=== PATIENT | male | born 1975 | race Caucasian/White ===

== ENCOUNTER 2019-01-14 19:27 | Emergency (ER) | payer OTHER ==
[2019-01-14 19:50] VITALS: BP 134/90; PULSE 102; TEMP 99.2; BMI 25.7
--- NOTE | 2019-01-14 20:15 | PDOC ---
History of Present Illness - General History Source: Patient Exam Limitations: No Limitations - History of Present Illness Initial Comments: 01/14/19 20:58 The patient is a year old 43 male, with no significant PMH, who presents to the emergency department with a fever that began 5 days ago. The patient states symptoms began with mild nasal congestion on 01/09 while he was in [place]. The patient mentions he began to endorse associated symptoms of fever, cough, chills, sweats, chest tightness and back pain throughout the week and came to the ER today for further evaluation. The patient notes no relief with Mucinex and switched to Sudafed today. The patient denies headache and dizziness. Denies fever, chills, nausea, vomit, diarrhea and constipation. Denies dysuria, frequency, urgency and hematuria.Denies asthma Allergies: NKDA Past surgical history: Social history: Drinks occasionally but denies smoking and recreational drug use. PCP: Rohit Mast <Roz Zuñiga - Last Filed: 01/14/19 21:08> <Sammie Morris - Last Filed: 01/15/19 04:40> - General Chief Complaint: Respiratory Stated Complaint: COUGH Time Seen by Provider: 01/14/19 19:39 Past History <Roz Zuñiga - Last Filed: 01/14/19 21:08> - Past Medical History COPD: No HTN: Yes - Suicide/Smoking/Psychosocial Hx Smoking History: Never smoked Hx Alcohol Use: Yes (SOCIAL) Drug/Substance Use Hx: No <Sammie Morris - Last Filed: 01/15/19 04:40> - Past Medical History Allergies/Adverse Reactions: Allergies Allergy/AdvReac Type Severity Reaction Status Date / Time No Known Allergies Allergy Verified 01/14/19 19:36 Home Medications: Ambulatory Orders Azithromycin 250 mg PO DAILY #4 tablet 01/14/19 Guaifenesin [Mucinex] 600 mg PO BID PRN 01/14/19 Losartan Potassium [Cozaar] 25 mg PO HS 01/14/19 Review of Systems - Review of Systems Able to Perform ROS?: Yes Comments:: 01/14/19 20:58 GENERAL/CONSTITUTIONAL: +Fever +chills HEAD, EYES, EARS, NOSE AND THROAT: No change in vision. No ear pain or discharge. No sore throat. CARDIOVASCULAR:+chest pain. RESPIRATORY: +cough +wheezing cough. No hemoptysis. GASTROINTESTINAL: No nausea, vomiting, diarrhea or constipation. GENITOURINARY: No dysuria, frequency, or change in urination. MUSCULOSKELETAL:+Back pain No joint or muscle swelling or pain. No neck. SKIN: No rash NEUROLOGIC: No headache, vertigo, loss of consciousness, or change in strength/ sensation. ENDOCRINE: No increased thirst. No abnormal weight change. HEMATOLOGIC/LYMPHATIC: No anemia, easy bleeding, or history of blood clots. ALLERGIC/IMMUNOLOGIC: No hives or skin allergy. <Roz Zuñiga - Last Filed: 01/14/19 21:08> *Physical Exam - Vital Signs Last Vital Signs Temp Pulse Resp BP Pulse Ox 99.2 F 102 H 16 134/90 97 01/14/19 19:31 01/14/19 19:31 01/14/19 19:31 01/14/19 19:31 01/14/19 19:31 - Physical Exam Comments: 01/14/19 20:58 GENERAL: Awake, alert, and fully oriented, in no acute distress HEAD: No signs of trauma EYES: PERRLA, EOMI, sclera anicteric, conjunctiva clear ENT: Auricles normal inspection, hearing grossly normal, nares patent, oropharynx clear without exudates. Moist mucosa NECK: Normal ROM, supple, no lymphadenopathy, JVD, or masses LUNGS:+Scattered bilateral wheezing. HEART: Regular rate and rhythm, normal S1 and S2, no murmurs, rubs or gallops ABDOMEN: Soft, nontender, normoactive bowel sounds. No guarding, no rebound. No masses EXTREMITIES: Normal range of motion, no edema. No clubbing or cyanosis. No cords, erythema, or tenderness NEUROLOGICAL: Cranial nerves II through XII grossly intact. Normal speech. SKIN: Warm, Dry, normal turgor, no rashes or lesions noted. <Roz Zuñiga - Last Filed: 01/14/19 21:08> - Vital Signs Last Vital Signs Temp Pulse Resp BP Pulse Ox 99.2 F 102 H 16 134/90 97 01/14/19 19:31 01/14/19 19:31 01/14/19 19:31 01/14/19 19:31 01/14/19 19:31 <Sammie Morris - Last Filed: 01/15/19 04:40> Moderate Sedation - Procedure Monitoring Vital Signs: Procedure Monitoring Vital Signs Temperature 99.2 F 01/14/19 19:31 Pulse Rate 102 H 01/14/19 19:31 Respiratory Rate 16 01/14/19 19:31 Blood Pressure 134/90 01/14/19 19:31 O2 Sat by Pulse Oximetry (%) 97 01/14/19 19:31 <Roz Zuñiga - Last Filed: 01/14/19 21:08> - Procedure Monitoring Vital Signs: Procedure Monitoring Vital Signs Temperature 99.2 F 01/14/19 19:31 Pulse Rate 102 H 01/14/19 19:31 Respiratory Rate 16 01/14/19 19:31 Blood Pressure 134/90 01/14/19 19:31 O2 Sat by Pulse Oximetry (%) 97 01/14/19 19:31 <Sammie Morris - Last Filed: 01/15/19 04:40> ED Treatment Course - Medications Given in the ED: ED Medications Discontinued Medications Generic Name Dose Route Start Last Admin Trade Name Freq PRN Reason Stop Dose Admin Albuterol/Ipratropium 1 amp 01/14/19 20:26 01/14/19 20:29 Duoneb - NEB 01/14/19 20:27 1 amp ONCE ONE Administration <Roz Zuñiga - Last Filed: 01/14/19 21:08> Progress Note - Progress Note Progress Note: Documentation has been prepared under my direction and personally reviewed by me in its entirety. I attest that this documented accurately reflects all work, treatment, procedures and medical decision making performed by me. <Sammie Morris - Last Filed: 01/15/19 04:40> Medical Decision Making - Medical Decision Making As noted above, this 43-year-old man without significant past medical history presents with a several day history of non productive cough along with subjective fever. Illness began with nasal congestion/runny nose . Exam as noted. Patient has scattered expiratory wheezing on exam. No other abnormal breath sounds heard. Because of the wheezing on exam, patient given DuoNeb nebulizer treatment. Clinical presentation most consistent with acute bronchitis; although patient has no history of asthma, because of the prolonged course of cough azithromycin course will be started with first dose of 500 mg by mouth given here in the emergency room . The remainder of the 5 day course will be sent to his pharmacy (that is, 20/50 milligrams daily for 4 days). <Sammie Morris - Last Filed: 01/15/19 04:40> *DC/Admit/Observation/Transfer - Attestations Scribe Attestion: 01/14/19 20:59 Documentation prepared by Roz Zuñiga, acting as general medical practitioner for Sammie Morris MD. <Roz Zuñiga - Last Filed: 01/14/19 21:08> <Sammie Morris - Last Filed: 01/15/19 04:40> Diagnosis at time of Disposition: Bronchitis - Discharge Dispostion Disposition: HOME Condition at time of disposition: Stable - Prescriptions Prescriptions: Azithromycin 250 mg PO DAILY #4 tablet - Referrals Referrals: Rohit Mast MD [Primary Care Provider] - - Patient Instructions Additional Instructions: rest;drink plenty of fluids Azithromycin 250mg daily for the next 4 days return or see Dr Mast if you have persistent cough/fever return to ER if you have shortness of breath/wheezing/high fever - Post Discharge Activity
[2019-01-14] MEDS ORDERED: ALBUTEROL SO4 2.5/IPRATROPIUM 0.5 INH SOL 3 ML VIAL.NEB. NEB ONE ×2 (20:26→20:27)
[2019-01-14] MEDS ORDERED: AZITHROMYCIN 250 MG TABLET PO ONE (20:53)
[2019-01-14] MEDS ORDERED: AZITHROMYCIN 500 MG TABLET ONE (20:56)
== END 2019-01-14 21:09 | disposition home or self-care (01) ==
LOC: FER 19:27
PROC: 3E0F7GC Introduction of Other Therapeutic Substance into Respiratory Tract, Via Natural or Artificial Opening (ICD-10-PCS; principal; 2019-01-14)
DX: R05 Cough (principal); J40 Bronchitis, not specified as acute or chronic
CPT/HCPCS: 99282-25

== ENCOUNTER 2020-06-05 21:15 | Emergency (ER) | payer OTHER ==
[2020-06-05 21:22] VITALS: BP 135/99; PULSE 89; TEMP 98.1; BMI 24.4
[2020-06-05] MEDS ORDERED: diphenhydrAMINE HCL 25 MG CAPSULE (FP) PO ONE ×2 (21:33→21:38)
--- NOTE | 2020-06-05 21:50 | PDOC ---
Documentation entered by Daisy Nails SCRIBE, acting as scribe for Sammie Morris MD. Sammie Morris MD: This documentation has been prepared by the scribeJesu Ana, SCRIBE, under my direction and personally reviewed by me in its entirety. I confirm that the documentation accurately reflects all work, treatment, procedures, and medical decision making performed by me. History of Present Illness - General Chief Complaint: Bite Stated Complaint: "I got stung by a bee" Time Seen by Provider: 06/05/20 21:19 History Source: Patient Exam Limitations: No Limitations - History of Present Illness Initial Comments: 06/05/20 21:23 Patient is a 45 year old male with a significant past medical history high blood pressure who presents to the ED with an insect bite x5 hours upon arrival. Patient stated he was cutting grass when he felt something bite him "a sharp pain" in his right ankle and he ignored it until his ankle started swelling up and he was in "a lot of really bad pain". Patient said he has been bit by insects before and never "felt anything like this". No history of insect toxin allergy. Patient denies: self medicating for the pain, SOB, wheezing, swallowing issues, any other related symptoms, smoking, drug use. Allergies: NKDA PCP: Dr. Rohit Mast Social history: Social drinker Past History - Medical History Allergies/Adverse Reactions: Allergies Allergy/AdvReac Type Severity Reaction Status Date / Time No Known Allergies Allergy Verified 06/05/20 21:41 Home Medications: Ambulatory Orders NK [No Known Home Medication] 06/05/20 COPD: No HTN: No - Immunization History Immunization Up to Date: Yes - Psycho-Social/Smoking History Smoking History: Never smoked - Substance Abuse Hx (Audit-C & DAST Scrn) How often the patient has a drink containing alcohol: Monthly or less Score: In Men: 4 or > Positive; In Women: 3 or > Positive: 1 Screen Result (Pos requires Nsg. Audit-10AR): Negative In the last yr the pt used illegal drug/Rx for NonMed reason: No Score: Yes response is considered Positive: 0 Screen Result (Positive result requires Nsg. DAST-10): Negative Review of Systems - Review of Systems Able to Perform ROS?: Yes Comments:: 06/05/20 21:42 CONSTITUTIONAL: Absent: fever, chills, diaphoresis, generalized weakness, malaise, loss of appetite HEENT: Absent: rhinorrhea, nasal congestion, throat pain, throat swelling, difficulty swallowing, mouth swelling, ear pain, eye pain, visual Changes CARDIOVASCULAR: Absent: chest pain, syncope, palpitations, irregular heart rate, lightheadedness, peripheral edema RESPIRATORY: Absent: cough, shortness of breath, dyspnea with exertion, orthopnea, wheezing, stridor, hemoptysis GASTROINTESTINAL: Absent: abdominal pain, abdominal distension, nausea, vomiting, diarrhea, constipation, melena, hematochezia GENITOURINARY: Absent: dysuria, frequency, urgency, hesitancy, hematuria, flank pain, genital pain MUSCULOSKELETAL: +Pain and swelling in right ankle Absent: myalgia, arthralgia, SKIN: Absent: rash, itching, pallor HEMATOLOGIC/IMMUNOLOGIC: Absent: easy bleeding, easy bruising, lymphadenopathy, frequent infections ENDOCRINE: Absent: unexplained weight gain, unexplained weight loss, heat intolerance, cold intolerance NEUROLOGIC: Absent: headache, focal weakness or paresthesias, dizziness, unsteady gait, seizure, mental status changes, bladder or bowel incontinence PSYCHIATRIC: Absent: anxiety, depression, suicidal or homicidal ideation, hallucinations. *Physical Exam - Vital Signs Last Vital Signs Temp Pulse Resp BP Pulse Ox 98.1 F 89 18 135/99 100 06/05/20 21:16 06/05/20 21:16 06/05/20 21:16 06/05/20 21:16 06/05/20 21:16 - Physical Exam 06/05/20 21:44 Well developed, well nourished. Awake and alert. No acute distress. HEENT: Normocephalic, atraumatic. PERRLA, EOMI. No conjunctival pallor. Sclera are non- icteric. Moist mucous membranes. Oropharynx is clear. NECK: Supple. Full ROM. No JVD. Carotid pulses 2+ and symmetric, without bruits. No thyromegaly. No lymphadenopathy. CARDIOVASCULAR: Regular rate and rhythm. No murmurs, rubs, or gallops. Distal pulses are 2+ and symmetric. PULMONARY: No evidence of respiratory distress. Lungs clear to auscultation bilaterally. No wheezing, rales or rhonchi. ABDOMINAL: Soft. Non-tender. Non-distended. No rebound or guarding. No organomegaly. Normoactive bowel sounds. MUSCULOSKELETAL: Normal range of motion at all joints. No bony deformities. No CVA tenderness. EXTREMITIES: + 3cm diameter moderately tender, mildly erythematous and erythematous area anterior right ankle. No fluctuance No red streaking seen proximally. No cyanosis. No clubbing. No calf tenderness. No other abnormalities. SKIN: Warm and dry. Normal capillary refill. No rashes. No jaundice. NEUROLOGICAL: Alert, awake, appropriate. Cranial nerves 2-12 intact. No deficits to light touch and temperature in face, upper extremities and lower extremities. No motor deficits in the in face, upper extremities and lower extremities. Normoreflexic in the upper and lower extremities. Normal speech. Toes are down-going bilaterally. Gait is normal without ataxia. PSYCHIATRIC: Cooperative. Good eye contact. Appropriate mood and affect. 06/05/20 21:51 Medical Decision Making - Medical Decision Making As noted above, this otherwise healthy 45-year-old man presents with an insect bite/sting of the anterior aspect of the right ankle. The tender, erythematous, slightly edematous area is circumscribed and no lymphangitic streaking is present. There is no fluctuance or purulent discharge. Clinical presentation consistent with local reaction to insect toxin. Since this bite or sting was within the last 8 hours, this is too early for secondary infection. The patient will will elevate and ice the area as much as possible and will return if the area becomes more inflamed within the next 48 hours. Discharge - Discharge Information Problems reviewed: Yes Clinical Impression/Diagnosis: Insect sting Qualifiers: Encounter type: initial encounter Injury intent: accidental or unintentional Qualified Code(s): T63.481A - Toxic effect of venom of other arthropod, accidental (unintentional), initial encounter Condition: Stable Disposition: HOME - Follow up/Referral Referrals: Rohit Mast MD [Primary Care Provider] - - Patient Discharge Instructions Patient Printed Discharge Instructions: DI for Insect Bites and Stings Additional Instructions: Ice/elevation to area of insect sting/bite for the next 24 hours Benadryl at night/Claritin or Zyrtec during the day for the next 2 to 3 days Return to ER or see your doctor if area continues to be red/swollen/painful in 48 hours Return to ER immediately if you have any difficulty swallowing or breathing - Post Discharge Activity
== END 2020-06-05 21:48 | disposition home or self-care (01) ==
LOC: SUPCPDRO 21:15 → FER 21:15
DX: T63.481A Toxic effect of venom of other arthropod, accidental (unintentional), initial encounter (principal)
CPT/HCPCS: 99283-25

== ENCOUNTER 2020-06-07 15:36 | Emergency (ER) | payer OTHER ==
[2020-06-07 16:09] VITALS: BP 139/86; PULSE 71; TEMP 97.9; BMI 27.6
[2020-06-07] MEDS ORDERED: predniSONE 20 MG TABLET (UD) PO ONE (16:11)
--- NOTE | 2020-06-07 16:11 | PDOC ---
Documentation entered by Zee Dempsey SCRIBE, acting as scribe for Trinh Allen MD. Trinh Allen MD: This documentation has been prepared by the Ke bautista Xhesika, SCRIBE, under my direction and personally reviewed by me in its entirety. I confirm that the documentation accurately reflects all work, treatment, procedures, and medical decision making performed by me. History of Present Illness - General Chief Complaint: Redness To Affected Area Stated Complaint: right foot redness Time Seen by Provider: 06/07/20 15:42 History Source: Patient Exam Limitations: No Limitations - History of Present Illness Initial Comments: 06/07/20 15:45 The patient is a 45y/o M with no PMH who presents to the ED for R foot swelling and pain. Pt was seen here in the ED 06/05/20 for similar complaints after being bitten by an insect while cutting grass. Pt states since then he has been taking Benadryl and Zertec with no improvement of symptoms. Pt states since then his swelling and pain has been persistent, prompting his arrival to the ED. The patient denies chest pain, shortness of breath, fever, chills. Allergies: NKDA PCP: Dr. Mast Past History - Medical History Allergies/Adverse Reactions: Allergies Allergy/AdvReac Type Severity Reaction Status Date / Time No Known Allergies Allergy Verified 06/07/20 15:41 Home Medications: Ambulatory Orders predniSONE [Deltasone -] 40 mg PO DAILY #8 tablet 06/07/20 COPD: No HTN: Yes - Immunization History Immunization Up to Date: Yes - Psycho-Social/Smoking History Smoking History: Never smoked Review of Systems - Review of Systems Able to Perform ROS?: Yes Comments:: 06/07/20 15:47 GENERAL/CONSTITUTIONAL: No fever or chills. No weakness. HEAD, EYES, EARS, NOSE AND THROAT: No change in vision. No ear pain or discharge. No sore throat. CARDIOVASCULAR: No chest pain or shortness of breath. RESPIRATORY: No cough, wheezing, or hemoptysis. GASTROINTESTINAL: No nausea, vomiting, diarrhea or constipation. GENITOURINARY: No dysuria, frequency, or change in urination. MUSCULOSKELETAL: No neck or back pain. SKIN: +R foot swelling and pain. NEUROLOGIC: No headache, vertigo, loss of consciousness, or change in strength/sensation. ENDOCRINE: No increased thirst. No abnormal weight change. HEMATOLOGIC/LYMPHATIC: No anemia, easy bleeding, or history of blood clots. ALLERGIC/IMMUNOLOGIC: No hives or skin allergy. *Physical Exam - Physical Exam GENERAL: Awake, alert, and fully oriented, in no acute distress HEAD: No signs of trauma EYES: PERRLA, EOMI, sclera anicteric, conjunctiva clear ENT: Auricles normal inspection, hearing grossly normal, nares patent, oropharynx clear without exudates. Moist mucosa NECK: Normal ROM, supple, no lymphadenopathy, JVD, or masses LUNGS: Breath sounds equal, clear to auscultation bilaterally. No wheezes, and no crackles HEART: Regular rate and rhythm, normal S1 and S2, no murmurs, rubs or gallops ABDOMEN: Soft, nontender, normoactive bowel sounds. No guarding, no rebound. No masses EXTREMITIES: Normal range of motion, 2+ nonpitting edema to the R ankle and foot. Pulses intact, no warmth, no erythema, no open lesions. Remainder of extremities with normal range of motion. No clubbing or cyanosis. No cords, erythema, or tenderness NEUROLOGICAL: Cranial nerves II through XII grossly intact. Normal speech, +antalgic gait. Motor and sensation intact SKIN: Warm, dry, normal turgor. No rash, no erythema. Medical Decision Making - Medical Decision Making 06/07/20 16:12 On exam, signs of inflammation- swelling and pain- but no signs of infection. No warmth, open lesions, induration. No signs of DVT- no calf tenderness. Will give prednisone for the inflammatory response. Stable for DC home. Discharge - Discharge Information Problems reviewed: Yes Clinical Impression/Diagnosis: Insect sting Qualifiers: Encounter type: initial encounter Injury intent: accidental or unintentional Qualified Code(s): T63.481A - Toxic effect of venom of other arthropod, accidental (unintentional), initial encounter Condition: Stable Disposition: HOME - Additional Discharge Information Prescriptions: predniSONE [Deltasone -] 40 mg PO DAILY #8 tablet - Follow up/Referral Referrals: Rohit Mast MD [Primary Care Provider] - - Patient Discharge Instructions - Post Discharge Activity
[2020-06-07] MEDS ORDERED: predniSONE 20 MG TABLET (UD) ONE (16:17)
== END 2020-06-07 16:23 | disposition home or self-care (01) ==
LOC: FER 15:36
DX: S90.861A Insect bite (nonvenomous), right foot, initial encounter (principal); T63.481A Toxic effect of venom of other arthropod, accidental (unintentional), initial encounter
CPT/HCPCS: 99283-25

== ENCOUNTER 2021-10-11 13:52 | Emergency (ER) | payer OTHER ==
[2021-10-11 13:59] VITALS: BP 148/82; PULSE 83; TEMP 97.8; BMI 25.7
[2021-10-11] MEDS ORDERED: ACETAMINOPHEN 500 MG TABLET (FP) PO ONE (14:14)
[2021-10-11] MEDS ORDERED: ACETAMINOPHEN 500 MG TABLET (FP) ONE (14:20)
== END 2021-10-11 15:03 | disposition home or self-care (01) ==
LOC: JERFT 13:52
PROC: 0HQ1XZZ Repair Face Skin, External Approach (ICD-10-PCS; principal; 2021-10-11)
DX: S01.111A Laceration without foreign body of right eyelid and periocular area, initial encounter (principal); W22.01XA Walked into wall, initial encounter
CPT/HCPCS: 99283-25